=== PATIENT | male | born 1995 | race Two or more races ===

== ENCOUNTER 2020-11-21 11:32 | Emergency (ER) | payer OTHER | END 2020-11-21 13:08 | disposition home or self-care (01) | LOC: FER 11:32 | DX: S61.212A Laceration without foreign body of right middle finger without damage to nail, initial encounter (principal); F17.210 Nicotine dependence, cigarettes, uncomplicated; W23.0XXA Caught, crushed, jammed, or pinched between moving objects, initial encounter | CPT/HCPCS: 73130 ==